=== PATIENT | female | born 1980 | race Caucasian/White ===

== ENCOUNTER 2020-12-23 17:37 | Emergency (ER) | payer MEDICAID ==
[~2020-12-23] VITALS: Ht 165 cm; Wt 135.0 kg
[2020-12-23 17:45] VITALS: BP 160/91
[2020-12-23] MEDS ORDERED: RX-ALBUTEROL INHALER (VENTOLIN HFA) 18 GM IH STA (18:16)
--- NOTE | 2020-12-23 18:28 | ED Respiratory ---
General Chief Complaint: Respiratory Problems Stated Complaint: COVID + | SOB | COUGH Nursing Triage Note: PT IS COVID + AND ON DAY 8 OF SYMPTOMS. SHE REPORTS SHE HAS NOT BEEN ON ANY MEDICATIONS. SHE DOES NOT HAVE AN INHALER. SHE COMES TO ER FOR A COUGH THATMAKES HER FEEL SHORT OF BREATH. SATS ARE 97% ON ROOM AIR. Source: patient Exam Limitations: no limitations History of Present Illness Date Seen by Provider: Dec 23, 2020 Time Seen by Provider: 17:45 Initial Comments Patient is a 40-year-old female diagnosed with Covid 8 days ago who presents with persistent nasal congestion, rhinorrhea and cough. Patient states she has persistent coughing fits that make her short of air. She has not asthmatic, no history of chronic lung disease. She is a non-smoker. Reports sweats and chills but denies fever. No nausea vomiting or sweats. No chest pain palpitations or increased leg pain or swelling. No other acute symptoms or complaints. Patient rates her symptoms as moderate. She has taken DayQuil and NyQuil with limited relief. Timing/Duration: week Severity: mild, moderate Prior Episodes/Possible Cause: other Modifying Factors: Improves With Other Allergies and Home Medications Allergies Coded Allergies: No Known Drug Allergies (Unverified , 12/23/20) Patient Home Medication List Home Medication List Reviewed: Yes Review of Systems Review of Systems Constitutional: no symptoms reported EENTM: see HPI Respiratory: see HPI Cardiovascular: see HPI Gastrointestinal: see HPI Genitourinary: see HPI Skin: see HPI Psychiatric/Neurological: See HPI Hematologic/Lymphatic: See HPI Immunological/Allergic: see HPI All Other Systems Reviewed Negative Unless Noted: Yes Past Dnitixf-Khqjdo-Sytnoy Hx Patient Social History Tobacco Use?: No Use of E-Cig and/or Vaping dev: No Substance use?: No Alcohol Use?: No Pt feels they are or have been: No Physical Exam Vital Signs - First Documented 12/23/20 17:45 Temp 35.0 Pulse 90 Resp 18 B/P (MAP) 160/91 (114) Pulse Ox 97 O2 Delivery Room Air Capillary Refill : Less Than 3 Seconds Height: '" Weight: lbs. oz. kg; 49.00 BMI Method: General Appearance: WD/WN, no apparent distress Eyes: Bilateral Eye Normal Inspection, Bilateral Eye PERRL, Bilateral Eye EOMI HEENT: PERRL/EOMI Neck: non-tender, full range of motion, supple Respiratory: lungs clear, normal breath sounds Extremities: non-tender, no pedal edema Neurologic/Psychiatric: alert Focused Exam Sepsis Stage: Ruled Out Time of Focused Exam: 18:28 Progress/Results/Core Measures Suspected Sepsis SIRS Temperature: Pulse: 90 Respiratory Rate: 18 Blood Pressure 160 /91 Mean: 114 Results/Orders My Orders Orders - DINESH PIKE DO Rx-Albuterol Inhaler (Rx-Ventolin Hfa) (12/23/20 18:16) Prednisone Tablet (Deltasone Tablet) (12/23/20 18:30) Medications Given in ED Current Medications Medications Dose Ordered Sig/Ricki Route Start Time Stop Time Status Last Admin Dose Admin Prednisone 50 mg ONCE ONCE PO 12/23/20 18:30 12/23/20 18:31 12/23/20 18:21 50 MG Vital Signs/I&O 12/23/20 17:45 Temp 35.0 Pulse 90 Resp 18 B/P (MAP) 160/91 (114) Pulse Ox 97 O2 Delivery Room Air Capillary Refill : Less Than 3 Seconds Blood Pressure Mean: 114 Departure Communication (Admissions) Patient with Covid without respiratory compromise. Will continue therapeutic care with supportive care Impression Primary Impression: COVID-19 Disposition: 01 HOME, SELF-CARE Condition: Stable Departure-Patient Inst. Decision time for Depature: 18:34 Referrals: JIGAR AVILA APRN (PCP/Family) Primary Care Physician Patient Instructions: COVID-19 Overview, Recovery After COVID-19 Add. Discharge Instructions: Please take newly prescribed medications as directed and continue home quarantine for at least 2 days after symptoms resolve. Return to the ED if new or worsening symptoms. All discharge instructions reviewed with patient and/or family. Voiced understanding. Scripts Prednisone (Prednisone) 20 Mg Tab 40 MG PO DAILY, #6 TAB 0 Refills Prov: DINESH PIKE DO 12/23/20 Azithromycin (Zithromax) 250 Mg Tablet 250 MG PO UD, #6 TAB TAKE 2 TABLETS TODAY, THEN TAKE 1 TABLET DAILY FOR 4 MORE DAYS Prov: DINESH PIKE DO 12/23/20 Work/School Note: Work Release Form Date Seen in the Emergency Department: Dec 23, 2020 Return to Work: Dec 30, 2020 DINESH PIKE DO Dec 23, 2020 18:28
[2020-12-23] MEDS ORDERED: predniSONE 20 MG TAB PO ONE (18:30)
[2020-12-23] MEDS ORDERED: AZIT250T PO (18:38)
[2020-12-23] MEDS ORDERED: PRD20T PO (18:38)
== END 2020-12-23 18:40 | disposition home or self-care (01) ==
LOC: EDUNIT# 17:37 → ER FS 17:42
DX: U07.1 COVID-19 (principal); Z73.0 Burn-out
CPT/HCPCS: 99283

== ENCOUNTER → 2022-02-18 | Outpatient (CLI) | payer MEDICAID ==
[~2022-02-18] MED LIST: AZIT250T PO; PRD20T PO
--- NOTE | 2022-02-18 11:31 | Diagnostic Imaging Report ---
INDICATION: Left wrist pain. AP, oblique and lateral views of the left wrist are obtained. FINDINGS: No acute fracture or dislocation is identified. No abnormal lytic or sclerotic focus is seen, and there is no radiopaque foreign body. IMPRESSION: No acute abnormality. Dictated by: Dictated on workstation # [id number]
== END ==
LOC: RAD FS 10:41
PROVIDERS: ATTEND Nurse Practitioner
DX: M25.532 Pain in left wrist (principal); R20.2 Paresthesia of skin
CPT/HCPCS: 73110